=== PATIENT | female | born 1995 | race Caucasian/White ===

== ENCOUNTER 2017-10-04 10:57 | Inpatient (IN) | payer BC ==
[~2017-10-04] VITALS: Ht 162.6 cm; Wt 84.5 kg
[2017-10-04] MEDS ORDERED: OXYTOCIN 30U/ 0.9% NaCL 500ML 500 ML IV ONE (21:58)
[2017-10-04] MEDS ORDERED: CALCIUM CARBONATE 500 MG TAB.CHEW PO PRN (22:00)
[2017-10-04] MEDS ORDERED: MISOPROSTOL 25 MCG TABLET VG PRN (22:00)
[2017-10-04] MEDS ORDERED: FENTANYL PF 100 MCG/2ML IV PRN (22:00)
[2017-10-04] MEDS ORDERED: FENTANYL PF 100 MCG/2ML IVPush PRN (22:00)
[2017-10-04] MEDS ORDERED: ONDANSETRON 2MG/ML, 2ML IVPush PRN (22:00)
[2017-10-04] MEDS ORDERED: TERBUTALINE 1 MG/ML, 1ML IVPush PRN (22:00)
[2017-10-04] MEDS ORDERED: PLEASE ENTER ALLERGIES MC SCH (22:30)
[2017-10-04 22:37] LABS: BASOPHILS # (AUTO) 0.03 x10^3/uL (0-0.1); BASOPHILS % (AUTO) 0 % (0-1); EOSINOPHILS # (AUTO) 0.14 x10^3/uL (0-0.4); EOSINOPHILS % (AUTO) 1 % (1-7); LYMPHOCYTES # (AUTO) 2.23 x10^3/uL (1-3.4); LYMPHOCYTES % (AUTO) 21 % (22-44); MD NO; MEAN CORPUSCULAR HEMOGLOBIN 27.5 pg (27.0-34.8); MEAN PLATELET VOLUME 9.1 fL (7.4-10.4); MONOCYTES # (AUTO) 0.81 x10^3/uL (0.2-0.8); MONOCYTES % (AUTO) 8 % (2-9); NEUTROPHILS % (AUTO) 70 % (42-75); PLATELET COUNT 270 x10^3/uL (130-400); RED CELL DISTRIBUTION WIDTH 13.8 % (9.6-15.2)
[2017-10-04] MEDS ORDERED: TERBUTALINE 1 MG/ML, 1ML ONE (22:37)
[2017-10-04] MEDS ORDERED: MISOPROSTOL 25 MCG TABLET ONE (22:37)
[2017-10-05] MEDS ORDERED: PLEASE ENTER ALLERGIES MC SCH (00:30)
[2017-10-05] MEDS: LACTATED RINGERS 1,000 ML IV SCH ×4 (03:56→19:00)
[2017-10-05] MEDS: D5%-LACTATED RINGERS 1,000 ML IV SCH ×2 (04:58→12:13)
[2017-10-05] MEDS ORDERED: PREN-59 PO (07:09)
[2017-10-05] MEDS ORDERED: OXYTOCIN 30U/ 0.9% NaCL 500ML 500 ML ONE ×2 (08:20→19:00)
[2017-10-05] MEDS ORDERED: OXYTOCIN 30U/ 0.9% NaCL 500ML 500 ML IV PRN (08:30)
[2017-10-05] MEDS ORDERED: FENTANYL/BUPIV./NS/PF 250 ML EPIDCONT SCH ×2 (09:36→09:54)
[2017-10-05] MEDS ORDERED: EPHEDRINE 50 MG/ML, 1ML IVPush PRN (10:00)
[2017-10-05] MEDS ORDERED: NALOXONE 0.4 MG/ML, 1ML IVPush PRN (10:00)
[2017-10-05] MEDS ORDERED: LACTATED RINGERS 1,000 ML IVBOLUS PRN (10:00)
[2017-10-05] MEDS ORDERED: BUPIVACAINE 0.25% ONE (10:12)
[2017-10-05] MEDS ORDERED: FENTANYL PF 500 MCG, BUPIVACAINE/PF 0.5%, 30ML 62.5 ML in SODIUM CHLORIDE 0.9% 177.5 ML EPIDCONT SCH (10:30)
[2017-10-05] MEDS ORDERED: DIPH,PERTUSS(ACELL),TET VAC/PF NC IM-VACC PRN (17:00)
[2017-10-05] MEDS ORDERED: RHOGAM FROM BLOOD BANK 1 NOTE EA IM/IV ONE (17:00)
[2017-10-05] MEDS ORDERED: MAGNESIUM HYDROXIDE 8%, 30ML UDC PO PRN (17:00)
[2017-10-05] MEDS ORDERED: MISOPROSTOL 200 MCG TABLET PR PRN (17:00)
[2017-10-05] MEDS ORDERED: CALCIUM CARBONATE 500 MG TAB.CHEW PO PRN (17:00)
[2017-10-05] MEDS ORDERED: OXYcodone IR 5MG TABLET PO PRN (17:00)
[2017-10-05] MEDS ORDERED: ONDANSETRON 2MG/ML, 2ML IV PRN (17:00)
[2017-10-05] MEDS ORDERED: MEASLES,MUMPS&RUBELLA VACC/PF 0.5 ML SQ PRN (17:00)
[2017-10-05] MEDS ORDERED: IBUPROFEN 600 MG TABLET ONE (18:59)
[2017-10-05] MEDS ORDERED: OXYcodone/APAP 5/325MG TABLET ONE (19:00)
[2017-10-05] MEDS: OXYcodone/APAP 5/325MG TABLET PO PRN (19:04)
[2017-10-05] MEDS: IBUPROFEN 600 MG TABLET PO PRN (19:04)
[2017-10-05] MEDS: OXYTOCIN 30U/ 0.9% NaCL 500ML 500 ML IV SCH (19:06)
[2017-10-05 19:58] VITALS: BP 110/72
[2017-10-06 00:35] VITALS: BP 118/75
[2017-10-06 02:33] LABS: BASOPHILS # (AUTO) 0.04 x10^3/uL (0-0.1); BASOPHILS % (AUTO) 0 % (0-1); EOSINOPHILS # (AUTO) 0.06 x10^3/uL (0-0.4); EOSINOPHILS % (AUTO) 1 % (1-7); LYMPHOCYTES # (AUTO) 1.73 x10^3/uL (1-3.4); LYMPHOCYTES % (AUTO) 15 % (22-44); MD NO; MEAN CORPUSCULAR HEMOGLOBIN 27.4 pg (27.0-34.8); MEAN CORPUSCULAR HGB CONC 33.5 g/dL (32.4-35.8); MEAN CORPUSCULAR VOLUME 81.8 fL (80-100); MEAN PLATELET VOLUME 8.7 fL (7.4-10.4); MONOCYTES % (AUTO) 7 % (2-9); NEUTROPHILS # (AUTO) 9.06 x10^3/uL (1.8-6.8); NEUTROPHILS % (AUTO) 78 % (42-75); PLATELET COUNT 179 x10^3/uL (130-400); RED BLOOD COUNT 3.43 x10^6/uL (3.82-5.3); RED CELL DISTRIBUTION WIDTH 14.4 % (9.6-15.2)
[2017-10-06] MEDS: OXYTOCIN 30U/ 0.9% NaCL 500ML 500 ML IV SCH ×2 (02:53→04:34)
[2017-10-06] MEDS: LACTATED RINGERS 1,000 ML IV SCH (03:00)
[2017-10-06 04:35] VITALS: BP 114/73
[2017-10-06 08:10] VITALS: BP 128/83
[2017-10-06] MEDS: IBUPROFEN 600 MG TABLET PO PRN ×2 (09:57→15:48)
[2017-10-06] MEDS: PRENATAL VIT/IRON/FA 1 EACH TABLET PO SCH (09:57)
[2017-10-06] MEDS: DOCUSATE 100 MG CAPSULE PO PRN (09:57)
[2017-10-06] MEDS: OXYcodone/APAP 5/325MG TABLET PO PRN (12:18)
[2017-10-06 12:50] VITALS: BP 123/75
[2017-10-06 15:52] VITALS: BP 122/75
[2017-10-06 20:00] VITALS: BP 121/72
[2017-10-07 07:45] VITALS: BP 126/86
[2017-10-07] MEDS: DOCUSATE 100 MG CAPSULE PO PRN (09:28)
[2017-10-07] MEDS: PRENATAL VIT/IRON/FA 1 EACH TABLET PO SCH (09:28)
[2017-10-07] MEDS ORDERED: IBUP-1222 PO (11:03)
== END 2017-10-07 12:14 | disposition home or self-care (01) | DRG 775 ==
LOC: LDIP 21:52 → 2NW 10-05 19:47
PROVIDERS: ADMIT Obstetrics & Gynecology Gynecology; ATTEND Obstetrics & Gynecology Gynecology
PROC: 3E033VJ Introduction of Other Hormone into Peripheral Vein, Percutaneous Approach (ICD-10-PCS; principal; 2017-10-05)
PROC: 10E0XZZ Delivery of Products of Conception, External Approach (ICD-10-PCS; 2017-10-05)
PROC: 0KQM0ZZ Repair Perineum Muscle, Open Approach (ICD-10-PCS; 2017-10-05)
PROC: 3E0R3BZ Introduction of Anesthetic Agent into Spinal Canal, Percutaneous Approach (ICD-10-PCS; 2017-10-05)
PROC: 00HU33Z Insertion of Infusion Device into Spinal Canal, Percutaneous Approach (ICD-10-PCS; 2017-10-05)
DX: O48.0 Post-term pregnancy (principal); O70.1 Second degree perineal laceration during delivery; Z37.0 Single live birth; Z3A.40 40 weeks gestation of pregnancy; Z80.41 Family history of malignant neoplasm of ovary; Z88.0 Allergy status to penicillin; Z88.8 Allergy status to other drugs, medicaments and biological substances
CPT/HCPCS: 36415; J7121; 85025; 86850; 86900; J2590; J3010; J3105; J7120

== ENCOUNTER 2017-10-08 09:07 | Emergency (ER) | payer BC ==
[~2017-10-08] VITALS: Ht 162.6 cm; Wt 79.5 kg
[~2017-10-08 09:07] MED LIST: IBUP-1222 PO; PREN-59 PO
[2017-10-08 11:05] VITALS: BP 120/80
== END 2017-10-08 11:07 | disposition home or self-care (01) ==
LOC: ED 10:59
DX: O9A.23 Injury, poisoning and certain other consequences of external causes complicating the puerperium (principal); S31.41XA Laceration without foreign body of vagina and vulva, initial encounter; O90.89 Other complications of the puerperium, not elsewhere classified; R30.0 Dysuria; X58.XXXA Exposure to other specified factors, initial encounter; Y93.89 Activity, other specified; Y92.89 Other specified places as the place of occurrence of the external cause; Y99.8 Other external cause status
CPT/HCPCS: 99283

== ENCOUNTER 2019-11-16 09:01 | Emergency (ER) | payer BC, OTHER ==
[~2019-11-16] VITALS: Ht 162.6 cm; Wt 69.5 kg
[2019-11-16 09:04] VITALS: BP 110/67
[2019-11-16 09:50] LABS: MICROSCOPIC AUTO
[2019-11-16 10:27] LABS: BASOPHILS % (AUTO) 0 % (0-1); EOSINOPHILS % (AUTO) 2 % (1-7); LYMPHOCYTES % (AUTO) 17 % (22-44); MEAN CORPUSCULAR HEMOGLOBIN 29.4 pg (27.0-34.8); MEAN CORPUSCULAR HGB CONC 33.3 g/dL (32.4-35.8); MEAN PLATELET VOLUME 8.1 fL (7.4-10.4); MONOCYTES % (AUTO) 6 % (2-9); NEUTROPHILS % (AUTO) 74 % (42-75); PLATELET COUNT 245 x10^3/uL (130-400); RED BLOOD COUNT 4.88 x10^6/uL (3.82-5.3)
[2019-11-16 10:29] LABS: MD NO
== END 2019-11-16 11:25 | disposition home or self-care (01) ==
LOC: ED 09:29
DX: O03.9 Complete or unspecified spontaneous abortion without complication (principal)
CPT/HCPCS: 36415; 76801; 81001; 84702; 85025; 86901; 99284